=== PATIENT | male | born 1945 | race Hispanic/Latino ===

== ENCOUNTER 2018-06-28 11:27 | Emergency (ER) | payer OTHER ==
[2018-06-28 12:27] LABS: APPEARANCE,URINE Clear (CLEAR); BILIRUBIN,URINE Negative (NEGATIVE); COLOR,URINE Yellow (YELLOW); GLUCOSE, URINE (UA) Negative (NEGATIVE); KETONES,URINE Negative (NEGATIVE); LEUKOCYTE ESTERASE ,URINE Trace (NEGATIVE); NITRATE,URINE Negative (NEGATIVE); OCCULT BLOOD,URINE Negative (NEGATIVE); PROTEIN,URINE 300 (NEGATIVE)
[2018-06-28 12:38] LABS: BACTERIA,URINE None Seen /HPF (None Seen); RBC,URINE None Seen /HPF (0-1); SQUAMOUS EPITHELIAL CELL,UR 0-2 /HPF (0-2); WBC,URINE 0-1 /HPF (0-1)
== END 2018-06-28 14:13 | disposition home or self-care (01) ==
LOC: EDH 11:27
DX: R10.9 Unspecified abdominal pain (principal); E11.9 Type 2 diabetes mellitus without complications; I10 Essential (primary) hypertension; Z86.73 Personal history of transient ischemic attack (TIA), and cerebral infarction without residual deficits; Z90.49 Acquired absence of other specified parts of digestive tract
CPT/HCPCS: 74176; 81001

== ENCOUNTER → 2018-09-13 | Outpatient (CLI) | payer OTHER | END | disposition home or self-care (01) | LOC: RAH 12:54 | PROVIDERS: ATTEND Family Medicine | DX: I73.9 Peripheral vascular disease, unspecified (principal); I12.9 Hypertensive chronic kidney disease with stage 1 through stage 4 chronic kidney disease, or unspecified chronic kidney disease; N18.3 Chronic kidney disease, stage 3 (moderate); E78.5 Hyperlipidemia, unspecified; E11.22 Type 2 diabetes mellitus with diabetic chronic kidney disease; E11.65 Type 2 diabetes mellitus with hyperglycemia | CPT/HCPCS: 93922 ==

== ENCOUNTER 2019-02-20 01:22 | Inpatient (IN) | payer OTHER ==
[~2019-02-20] VITALS: Ht 177.8 cm; Wt 78.7 kg
[2019-02-20 02:18] LABS: EOSINOPHILS % (AUTO) 0.2 % (0.0-8.0); HEMATOCRIT 39.6 % (42-54); LYMPHOCYTES % (AUTO) 6.8 % (21.0-51.0); MEAN CORPUSCULAR HEMOGLOBIN 31.3 pg (27.0-33.0); MEAN CORPUSCULAR HGB CONC 34.7 g/dL (32.0-36.0); MEAN CORPUSCULAR VOLUME 90.2 fL (79-99); MONOCYTES % (AUTO) 5.8 % (3.0-13.0); NEUTROPHILS % (AUTO) 86.2 % (40.0-77.0); PLATELET COUNT (AUTO) 99 K/uL (130-400); RED BLOOD CELL COUNT(AUTO) 4.39 MIL/uL (4.50-6.20); RED CELL DISTRIBUTION WIDTH 15.3 % (11.0-15.5); WHITE BLOOD COUNT (AUTO) 5.8 K/uL (4.8-10.8)
[2019-02-20 02:25] LABS: APPEARANCE,URINE CLEAR (CLEAR); BILIRUBIN,URINE NEGATIVE (NEGATIVE); COLOR,URINE YELLOW (YELLOW); GLUCOSE, URINE (UA) NEGATIVE (NEGATIVE); KETONES,URINE NEGATIVE (NEGATIVE); LEUKOCYTE ESTERASE ,URINE TRACE (NEGATIVE); NITRATE,URINE NEGATIVE (NEGATIVE); OCCULT BLOOD,URINE TRACE-INTACT (NEGATIVE); PH,URINE 5.5 (5.0-8.0); PROTEIN,URINE 30 mg/dL (NEGATIVE); UROBILINOGEN,URINE 0.2 mg/dL (0.2-1.0)
[2019-02-20 02:29] LABS: INR 0.93 (0.85-1.15); PARTIAL THROMBOPLASTIN TIME 31.9 SEC (26.3-35.5); PROTHROMBIN TIME 9.8 SEC (9.6-11.6)
[2019-02-20] MEDS ORDERED: IBUPROFEN 400 MG TABLET ONE (02:30)
[2019-02-20 02:37] LABS: ALANINE AMINOTRANSFERASE 24 U/L (12-78); ALBUMIN 2.9 g/dL (3.5-5.0); ASPARTATE AMINOTRANSFERASE 12 U/L (10-37); BILIRUBIN,TOTAL 0.8 mg/dL (0.2-1.0); CARBON DIOXIDE 14 mmol/L (21-32); CHLORIDE 102 mmol/L (101-111); CREATINE KINASE, TOTAL 54 U/L (21-232); CREATININE 4.1 mg/dL (0.5-1.5); GLOMERULAR FILTR. RATE CALC 15 mL/min (>60); GLUCOSE,RANDOM 130 mg/dL (70-105); MYOGLOBIN 242 ng/mL (10-92); POTASSIUM 3.9 mmol/L (3.5-5.1); SODIUM SERUM 131 mmol/L (136-145); TOTAL PROTEIN, SERUM 5.8 g/dL (6.0-8.3); TROPONIN I < 0.04 ng/mL (0.00-0.06)
[2019-02-20 02:39] LABS: UREA NITROGEN, BLOOD 90 mg/dL (7-18)
[2019-02-20 02:40] LABS: PLATELET MORPHOLOGY COMMENT SLIGHTLY DECREASED
[2019-02-20] MEDS ORDERED: SODIUM CHLORIDE 0.9% 1000ML 1,000 ML IV ONE ×2 (02:46→06:38)
[2019-02-20 03:15] LABS: ABG OXYGEN SATURATION 88.7 % (95.0-99.0); BASE EXCESS,VENOUS BLOOD GAS -12.2 (-2.0-3.0); HCO3,VENOUS BLOOD GAS 11.6 (21.0-28.0); PCO2,VENOUS BLOOD GAS 23 (35-48); PH,VENOUS BLOOD GAS 7.321 (7.350-7.450)
[2019-02-20] MEDS ORDERED: ZOSYN 3.375GM+NS 50ML 50 ML IV ONE (04:39)
[2019-02-20] MEDS ORDERED: SODIUM CHLORIDE 0.9% 1000ML 1,000 ML IV SCH (05:45)
[2019-02-20] MEDS ORDERED: ZOSYN 3.375GM+NS 50ML 50 ML IV SCH (06:00)
[2019-02-20 07:32] VITALS: BP 101/46
--- NOTE | 2019-02-20 07:40 | NUR ---
ASSESSMENT ENCOUNTERED PT A&OX3, CALM COOPERATIVE AND DOES NOT APPEAR TO BE IN ANY DISTRESS NOR ANY NEURO DEFICITS PRESENT, PT DENIES PAIN, SOB, NAUSEA. PT IS NPO PENDING EVALUATION BY DR PATEL. CALL LIGHT WITHIN REACH, FAMILY AT BEDSIDE.
[2019-02-20] MEDS ORDERED: PRAV40TA3 PO (07:50)
[2019-02-20] MEDS ORDERED: NITR0.4T50 SL (07:50)
[2019-02-20] MEDS ORDERED: ISOS30TA6 PO (07:50)
[2019-02-20] MEDS ORDERED: GLIP5TAB11 PO (07:50)
[2019-02-20] MEDS ORDERED: CARV25TA PO (07:50)
[2019-02-20] MEDS ORDERED: CYAN10007 IJ (07:50)
[2019-02-20] MEDS ORDERED: FERR325T22 PO (07:50)
[2019-02-20] MEDS ORDERED: LISI40TA4 PO (07:50)
[2019-02-20] MEDS ORDERED: DOCU100C33 PO (07:50)
[2019-02-20] MEDS ORDERED: PANT40TA25 PO (07:50)
[2019-02-20] MEDS ORDERED: ASPI-1181 PO (07:50)
[2019-02-20] MEDS ORDERED: ERGO500014 PO (07:50)
[2019-02-20] MEDS ORDERED: PHARMACY COMMUNICATION MISC SCH (09:00)
[2019-02-20] MEDS: SODIUM BICARB 8.4% 50ML SYRING 150 MEQ in DEXTROSE 5%-WATER 1,000 ML IVP SCH ×2 (09:30→19:30)
[2019-02-20 11:00] VITALS: BP 125/55
[2019-02-20] MEDS ORDERED: KETOROLAC TROMETHAMINE 15MG/ML IV PRN (12:30)
[2019-02-20] MEDS ORDERED: ONDANSETRON HCL 4 MG/2 ML VIAL ONE (12:37)
[2019-02-20] MEDS ORDERED: KETOROLAC TROMETHAMINE 15MG/ML ONE (12:37)
--- NOTE | 2019-02-20 14:23 | NUR ---
SHEFALI PLAN VISITED WITH PATIENT. PATIENT IN PROCEDURE. MIGUELANGEL WILL CONTINUE TO FOLLOW. Addendum: 02/20/19 at 1424 by ABIGAIL FULLER RN CM Amended: Links added.
[2019-02-20 15:00] VITALS: BP 123/55
[2019-02-20] MEDS: PANTOPRAZOLE 40 MG/VIAL IVP SCH (18:16)
--- NOTE | 2019-02-20 18:30 | NUR ---
TRANSFER TO 401 REPORT GIVEN TO NOE ANSARI,
[2019-02-20 19:21] VITALS: BP 131/50
[2019-02-20] MEDS: ZOSYN 3.375GM+NS 50ML 50 ML IV SCH (19:30)
[2019-02-20 23:51] VITALS: BP 145/64
[2019-02-21 03:58] VITALS: BP 146/64
[2019-02-21] MEDS: SODIUM BICARB 8.4% 50ML SYRING 150 MEQ in DEXTROSE 5%-WATER 1,000 ML IVP SCH ×2 (04:27→12:33)
[2019-02-21 04:40] LABS: HEMATOCRIT 36.4 % (42-54); MEAN CORPUSCULAR HEMOGLOBIN 31.4 pg (27.0-33.0); MEAN CORPUSCULAR HGB CONC 35.4 g/dL (32.0-36.0); MEAN CORPUSCULAR VOLUME 88.6 fL (79-99); NUCLEATED RED BLOOD CELLS 0.1 % (0.0-0.19); PLATELET COUNT (AUTO) 80 K/uL (130-400); RED BLOOD CELL COUNT(AUTO) 4.11 MIL/uL (4.50-6.20); RED CELL DISTRIBUTION WIDTH 15.4 % (11.0-15.5); WHITE BLOOD COUNT (AUTO) 7.8 K/uL (4.8-10.8)
[2019-02-21 04:48] LABS: ALBUMIN 2.1 g/dL (3.5-5.0); BILIRUBIN,TOTAL 0.9 mg/dL (0.2-1.0); CREATININE 3.4 mg/dL (0.5-1.5); PHOSPHORUS 3.2 mg/dL (2.5-4.9); TOTAL PROTEIN, SERUM 5.2 g/dL (6.0-8.3)
[2019-02-21 04:49] LABS: POTASSIUM 2.9 mmol/L (3.5-5.1)
[2019-02-21 05:07] LABS: BAND NEUTROPHILS % (MANUAL) 12 % (0-2); EOSINOPHILS % (MANUAL) 1 % (1-6); LYMPHOCYTES % (MANUAL) 8 % (22-44); MAN.DIFF COMMENT-IMPRESSION MANUAL DIFFERENTIAL; MONOCYTES % (MANUAL) 7 % (2-9); SEGMENTED NEUTROPHILS % 72 % (40-70)
--- NOTE | 2019-02-21 06:00 | NUR ---
MD CALL DR CARLTON CHRISTOPHER TO INFORM HIM OF PATIENT'S POTASSIUM OF 2.9 MMOL/L. NO CALL BACK OF YET.
--- NOTE | 2019-02-21 06:43 | NUR ---
NO CALL DR VINCENT HAS NOT RETURN PAGED AT THIS TIME.
--- NOTE | 2019-02-21 06:50 | NUR ---
MD CALL DR VINCENT CALLED BACK AND WAS INFORMED OF PATIENT POTASSIUM LEVEL. ORDERS FOR HALF POTASSIUM PROTOCOL GIVEN.
[2019-02-21 07:58] VITALS: BP 159/77
--- NOTE | 2019-02-21 10:03 | NUR ---
DR. MUNGUIA PATIENT COMPLAINS OF "BAD" HEADACHE. USED PAIN SCALE TO ASSESS SEVERITY OF HEADACHE AND PATIENT RESPONDED "I DON'T KNOW. ALL I KNOW IS MY HEADACHE IS BAD." CALLED DRHawa CALLED DR. MUNGUIA TO REPORT PATIENT COMPLAINT, PATIENT DOES NOT HAVE PRN ORDER FOR ANY PAIN MEDICATION. NO ANSWER AT THIS TIME AND I AM UNABLE TO LEAVE VOICEMAIL. WILL REATTEMPT TO CALL
[2019-02-21] MEDS: ZOSYN 3.375GM+NS 50ML 50 ML IV SCH ×2 (11:19→19:16)
[2019-02-21] MEDS: PANTOPRAZOLE 40 MG/VIAL IVP SCH (11:20)
[2019-02-21 11:39] VITALS: BP 145/66
[2019-02-21] MEDS ORDERED: MEPERIDINE-PF 25 MG/ML SYG IVP PRN ×2 (12:15)
[2019-02-21] MEDS ORDERED: ONDANSETRON HCL 4 MG/2 ML VIAL IVP PRN (12:15)
--- NOTE | 2019-02-21 12:30 | NUR ---
INITIAL- DC OPTIONS MET W PT, PT SISTER, AND SPOUSE MARTHA, WHO WILL PROVIDE TRANSPORT IF PT IS DISCHARGED TO HOME. PT CURRENTLY W NGT, MAY NEED SURGERY, RECENT DECLINE IN STATUS, HAS CANE , USES 50% OF THE TIME ONE STEP AT OUTSIDE OF HOME, SPOUSE STATES HAS FALLEN THERE MORE THAN ONCE PLAN OF CAR STILL UNDECIDED, MAY NEED ABDOMINAL SURGERY, FAMILY- SPOUSE AND SISTER STATES PT WILL NEED REHAB/SNF AFTER THE SURGERY 2/2 TO HIS RECENT SIGNIFICANT DECLINE IN STATUS. DISCUSSED [facility] BEN[facility] VS [facility] BENEFITS . CM WILL FOLLOW UP Yudelka RAMEZ AT [place] TOMORROW TO SEE IF PT IS SERVICE CONNECTED AND PRESENT THAT OPTION Addendum: 02/22/19 at 0754 by SALVADOR BANGURA RN CM Amended: Links added.
[2019-02-21] MEDS: IPRATROPIUM/ALBUTEROL SULFATE 3 ML SOLUTION IH SCH ×4 (13:21→22:00)
[2019-02-21] MEDS: POTASSIUM CHLORIDE 10MEQ/100ML 100 ML IV PRN ×2 (13:32→17:29)
[2019-02-21] MEDS ORDERED: CLINIMIX E 5%-15% 2,000 ML IV ONE (14:00)
--- NOTE | 2019-02-21 15:42 | NUR ---
RD Notification - TPN RECS Pt admitted for Acute on Chronic Renal Failure, Acute Diverticulitis. TOBIN TPN Recommendations: Clinimix E 10/05 @65mls/hr, 20% Intralipid MWF. RD to continue to monitor potassium levels. Pt with PICC Line in place. NGT for intermittent suction as per EMR. Pt LBM 02/16/19. Pt monitored labs: K 2.9, BUN 73, Cr 3.4, GFR 19, Glu 221, ca 7.6, AST 9, Alb 2.1. RD to continue to monitor. Please notify RD as additional nutrition concerns arise. Thank you. Addendum: 02/21/19 at [address] RD Amended: Links added.
[2019-02-21 16:46] VITALS: BP_SYST 117; BP_SYST 118; BP_DIAS 55; BP_DIAS 68
[2019-02-21] MEDS ORDERED: GLUCAGON 1MG KIT 1 MG ML IM PRN (18:30)
[2019-02-21] MEDS ORDERED: PHARMACY COMMUNICATION MISC SCH (18:30)
[2019-02-21] MEDS ORDERED: INSULIN HUMULIN R 100 UNIT/ML 3ML ONE (18:47)
[2019-02-21] MEDS ORDERED: COMPOUND IV REFRIGERATED 1 EACH IVSOLN MISC PRN (19:00)
[2019-02-21] MEDS: SODIUM BICARB 8.4% IV SCH (19:16)
[2019-02-21] MEDS: SYRING IV SCH (19:16)
[2019-02-21] MEDS: SODIUM CHLORIDE 0.9% IV SCH (19:16)
[2019-02-21 19:27] VITALS: BP 147/68
[2019-02-21] MEDS ORDERED: INSULIN HUMULIN R 100 UNIT/ML 3ML SQ SCH (21:00)
[2019-02-21 23:45] VITALS: BP 162/72
[2019-02-22] MEDS: INSULIN HUMULIN R 100 UNIT/ML 3ML SQ SCH ×4 (00:13→17:26)
[2019-02-22] MEDS: IPRATROPIUM/ALBUTEROL SULFATE 3 ML SOLUTION IH SCH ×6 (02:14→21:21)
[2019-02-22 03:00] VITALS: BP 168/72
[2019-02-22 05:54] LABS: HEMATOCRIT 35.2 % (42-54); MEAN CORPUSCULAR HEMOGLOBIN 31.1 pg (27.0-33.0); MEAN CORPUSCULAR VOLUME 88.7 fL (79-99); PLATELET COUNT (AUTO) 86 K/uL (130-400); RED BLOOD CELL COUNT(AUTO) 3.97 MIL/uL (4.50-6.20); RED CELL DISTRIBUTION WIDTH 15.4 % (11.0-15.5); WHITE BLOOD COUNT (AUTO) 5.7 K/uL (4.8-10.8)
[2019-02-22 06:04] LABS: BAND NEUTROPHILS % (MANUAL) 20 % (0-2); LYMPHOCYTES % (MANUAL) 9 % (22-44); MAN.DIFF COMMENT-IMPRESSION MANUAL DIFFERENTIAL; METAMYELOCYTES % 2 % (0-0); MONOCYTES % (MANUAL) 7 % (2-9); SEGMENTED NEUTROPHILS % 62 % (40-70)
[2019-02-22 06:30] LABS: ALBUMIN 2.1 g/dL (3.5-5.0); BILIRUBIN,TOTAL 0.9 mg/dL (0.2-1.0); CREATININE 2.8 mg/dL (0.5-1.5); PHOSPHORUS 3.2 mg/dL (2.5-4.9); TOTAL PROTEIN, SERUM 5.5 g/dL (6.0-8.3)
--- NOTE | 2019-02-22 07:55 | NUR ---
REPORT GIVEN TO FROYLAN ANSARI ROOM 311
[2019-02-22 08:00] VITALS: BP 179/71
[2019-02-22] MEDS: PANTOPRAZOLE 40 MG/VIAL IVP SCH (09:00)
[2019-02-22] MEDS: ZOSYN 3.375GM+NS 50ML 50 ML IV SCH ×2 (09:55→20:52)
[2019-02-22] MEDS: POTASSIUM CHLORIDE 10MEQ/100ML 100 ML IV PRN ×2 (09:55→17:54)
[2019-02-22] MEDS: FAT EMULSIONS 20% 250ML 250 ML IV SCH (10:00)
[2019-02-22 11:00] VITALS: BP 162/84
[2019-02-22 16:00] VITALS: BP 191/72
--- NOTE | 2019-02-22 16:23 | NUR ---
RD UPDATE Clinimix E 10/05 @65mls initiated 02/21/19. Pt with improving renal labs (BUN 62, Cr 2.8, GFR 24). Serum potassium 3.0. Noted elevated BG; sliding scale insulin in place as per EMR. Recommend Magnesium lab draw. RD to continue to monitor. Please notify RD as additional nutrition concerns arise. Thank you.
[2019-02-22] MEDS: NITROGLYCERIN 1GM/1 INCH PACKET TD SCH (17:30)
[2019-02-22] MEDS ORDERED: NITROGLYCERIN 1GM/1 INCH PACKET TD ONE (17:37)
[2019-02-22] MEDS: LIDOCAINE HCL-MPF 1% 2ML VIAL IV PRN (17:54)
[2019-02-22] MEDS ORDERED: M.V.I. IV [ADULT] 10 ML in CLINIMIX E 5%-15% 2,000 ML IV SCH (18:00)
[2019-02-22 20:00] VITALS: BP 165/71
[2019-02-23] VITALS: BP 149/82
[2019-02-23] MEDS: INSULIN HUMULIN R 100 UNIT/ML 3ML SQ SCH ×4 (01:01→17:28)
[2019-02-23] MEDS: IPRATROPIUM/ALBUTEROL SULFATE 3 ML SOLUTION IH SCH ×7 (01:05→23:59)
[2019-02-23] MEDS: NITROGLYCERIN 1GM/1 INCH PACKET TD SCH ×4 (01:30→21:57)
[2019-02-23 04:00] VITALS: BP 188/71
[2019-02-23 06:17] LABS: ALBUMIN 2.1 g/dL (3.5-5.0); BILIRUBIN,TOTAL 0.7 mg/dL (0.2-1.0); CREATININE 2.2 mg/dL (0.5-1.5); MAGNESIUM 2.6 mg/dL (1.80-2.40); PHOSPHORUS 3.1 mg/dL (2.5-4.9); POTASSIUM 3.3 mmol/L (3.5-5.1); TOTAL PROTEIN, SERUM 5.5 g/dL (6.0-8.3)
[2019-02-23 07:15] VITALS: BP 152/77
[2019-02-23] MEDS ORDERED: DIATR MEGLU/DIATRIZOATE SODIUM 30 ML BOTTLE ONE (07:19)
[2019-02-23] MEDS: SODIUM BICARB 8.4% IV SCH (07:30)
[2019-02-23] MEDS: SODIUM CHLORIDE 0.9% IV SCH (07:30)
[2019-02-23] MEDS: SYRING IV SCH (07:30)
[2019-02-23] MEDS: ZOSYN 3.375GM+NS 50ML 50 ML IV SCH ×2 (08:57→20:13)
[2019-02-23 12:00] VITALS: BP 114/66
[2019-02-23] MEDS: PANTOPRAZOLE 40 MG/VIAL IVP SCH (13:13)
[2019-02-23 16:00] VITALS: BP 163/69
--- NOTE | 2019-02-23 16:16 | NUR ---
DR PATEL EXPLAINED TO PATIENT ON CT SCAN RESULTS AND FREDAT REQUESTED COPY OF REPORT . PER MD TO GO AHEAD AND GIVE PAITENT COPY . VERIFIED WITH CM ON PROCESS ,IF MD OK AND EXPLAINED TO PATIENT MAY GIVE PATIENT A COPY OF RESULT .
--- NOTE | 2019-02-23 16:25 | NUR ---
RD FOLLOW UP NOTE Pt continues on Clinimix 10/05 @ 65mls/hr; pending CT results and GI recommendations. Bicarb drip discontinued, as per EMR. Renal lab values continue to improve. NGT remains for suction. Pt LBM 02/20/19. Pt monitoed labs: Na 148, K 3.3, CO2 34, BUN 52, Cr 2.2, GFR 31, Glu 181, Mg 2.60, AST 5, Alb 2.1. RD to continue to monitor. Please notify RD as nutrition concerns arise. Thank you. Addendum: 02/23/19 at [address] RD Amended: Links added.
[2019-02-23] MEDS ORDERED: M.V.I. IV [ADULT] 10 ML in CLINIMIX E 5%-15% 2,000 ML IV SCH (18:00)
[2019-02-23 20:00] VITALS: BP 187/76
--- NOTE | 2019-02-23 20:00 | NUR ---
activity ambulatory in the hallway, steady gait, tolerated well, back to room, right ngt to lis, ivf infusing well to wiley picc line, teach patient plan of care and expected outcome
[2019-02-24] VITALS (9 sets, daily range): BP systolic 171–217; BP diastolic 72–88
[2019-02-24] MEDS: LABETALOL 20 MG/4 ML DISP.SYRIN IV PRN ×3 (00:43→16:40)
--- NOTE | 2019-02-24 00:43 | NUR ---
B/P B/P 171/86, HEART RATE APICAL 66, ASYMPTOMAtic, labetolotl 5 mg ivp given
[2019-02-24] MEDS: INSULIN HUMULIN R 100 UNIT/ML 3ML SQ SCH ×5 (00:50→18:55)
--- NOTE | 2019-02-24 01:40 | NUR ---
med effect b/p 138/75, no sob, no c/o pain
[2019-02-24 04:50] LABS: BASOPHILS % (AUTO) 0.3 % (0.0-5.0); EOSINOPHILS % (AUTO) 2.6 % (0.0-8.0); HEMATOCRIT 35.1 % (42-54); LYMPHOCYTES % (AUTO) 17.8 % (21.0-51.0); MEAN CORPUSCULAR HEMOGLOBIN 30.8 pg (27.0-33.0); MEAN CORPUSCULAR HGB CONC 34.4 g/dL (32.0-36.0); MEAN CORPUSCULAR VOLUME 89.6 fL (79-99); MONOCYTES % (AUTO) 10.4 % (3.0-13.0); NEUTROPHILS % (AUTO) 68.9 % (40.0-77.0); PLATELET COUNT (AUTO) 133 K/uL (130-400); RED BLOOD CELL COUNT(AUTO) 3.91 MIL/uL (4.50-6.20)
[2019-02-24 05:19] LABS: ALBUMIN 2.2 g/dL (3.5-5.0); BILIRUBIN,TOTAL 1.1 mg/dL (0.2-1.0); CREATININE 2.1 mg/dL (0.5-1.5); POTASSIUM 3.3 mmol/L (3.5-5.1); TOTAL PROTEIN, SERUM 5.6 g/dL (6.0-8.3)
[2019-02-24] MEDS: IPRATROPIUM/ALBUTEROL SULFATE 3 ML SOLUTION IH SCH ×3 (06:42→23:20)
[2019-02-24] MEDS: NITROGLYCERIN 1GM/1 INCH PACKET TD SCH ×3 (07:45→23:45)
[2019-02-24] MEDS ORDERED: CLONIDINE 0.3 MG/ 24 HR PATCH TD SCH (09:00)
[2019-02-24] MEDS: PANTOPRAZOLE 40 MG/VIAL IVP SCH (09:38)
[2019-02-24] MEDS: ZOSYN 3.375GM+NS 50ML 50 ML IV SCH ×2 (09:38→21:41)
[2019-02-24] MEDS: FAT EMULSIONS 20% 250ML 250 ML IV SCH (09:39)
[2019-02-24] MEDS: OCTREOTIDE ACETATE 100 MCG/ML AMP SQ SCH ×2 (14:55→21:42)
[2019-02-24] MEDS ORDERED: LABETALOL 20 MG/4 ML DISP.SYRIN IV PRN (16:30)
[2019-02-24] MEDS ORDERED: MAGNESIUM 2GM PREMIX 50ML 50 ML IV PRN (20:30)
[2019-02-24] MEDS ORDERED: M.V.I. IV [ADULT] 10 ML in CLINIMIX E 5%-15% 2,000 ML IV SCH (20:30)
[2019-02-25 00:18] VITALS: BP 193/86
[2019-02-25] MEDS: POTASSIUM CHLORIDE 10MEQ/100ML 100 ML IV PRN (00:30)
[2019-02-25] MEDS: LIDOCAINE HCL-MPF 1% 2ML VIAL IV PRN (00:30)
[2019-02-25] MEDS: INSULIN HUMULIN R 100 UNIT/ML 3ML SQ SCH ×4 (00:32→18:34)
[2019-02-25] MEDS: LABETALOL 20 MG/4 ML DISP.SYRIN IV PRN (00:40)
[2019-02-25 04:31] VITALS: BP 163/119
[2019-02-25 04:53] LABS: BASOPHILS % (AUTO) 0.5 % (0.0-5.0); EOSINOPHILS % (AUTO) 3.4 % (0.0-8.0); HEMATOCRIT 36.5 % (42-54); MEAN CORPUSCULAR HEMOGLOBIN 30.9 pg (27.0-33.0); MEAN CORPUSCULAR VOLUME 90.9 fL (79-99); MONOCYTES % (AUTO) 12.5 % (3.0-13.0); NEUTROPHILS % (AUTO) 71.6 % (40.0-77.0); NUCLEATED RED BLOOD CELLS 0.1 % (0.0-0.19); PLATELET COUNT (AUTO) 129 K/uL (130-400); RED BLOOD CELL COUNT(AUTO) 4.02 MIL/uL (4.50-6.20); RED CELL DISTRIBUTION WIDTH 14.9 % (11.0-15.5); WHITE BLOOD COUNT (AUTO) 5.9 K/uL (4.8-10.8)
[2019-02-25 05:25] LABS: CREATININE 2.5 mg/dL (0.5-1.5); MAGNESIUM 2.2 mg/dL (1.80-2.40); POTASSIUM 3.9 mmol/L (3.5-5.1)
[2019-02-25] MEDS: IPRATROPIUM/ALBUTEROL SULFATE 3 ML SOLUTION IH SCH ×4 (06:00→23:21)
[2019-02-25] MEDS: NITROGLYCERIN 1GM/1 INCH PACKET TD SCH ×3 (07:45→23:45)
[2019-02-25 08:00] VITALS: BP 213/78
[2019-02-25] MEDS: ZOSYN 3.375GM+NS 50ML 50 ML IV SCH ×2 (10:04→22:12)
[2019-02-25] MEDS: PANTOPRAZOLE 40 MG/VIAL IVP SCH (10:06)
[2019-02-25] MEDS: OCTREOTIDE ACETATE 100 MCG/ML AMP SQ SCH ×3 (10:07→22:12)
[2019-02-25] MEDS ORDERED: CLONIDINE 0.3 MG/ 24 HR PATCH TD SCH (11:15)
[2019-02-25 12:00] VITALS: BP 168/84
--- NOTE | 2019-02-25 12:30 | NUR ---
Notified patient continues with elevated BP and Clonidine 0.6mg patch started today. No new orders.
--- NOTE | 2019-02-25 14:15 | NUR ---
Dr. Iain mac. Orders for Pharmacy to reconstitute TPN without Premix without Sodium due to elevated NA
[2019-02-25 16:19] VITALS: BP 183/77
--- NOTE | 2019-02-25 17:15 | NUR ---
Patient requesting to be taken off NG suction and all IV's. Disconnected patient from requested.
--- NOTE | 2019-02-25 18:15 | NUR ---
Notified Dr. Fernandes patient requesting to be off NG tube and TPN for a while. NOtified Dr. Fernandes and Pharmacy notified of Dr. Timmons recommendations. Addendum: 02/25/19 at 1909 by MANASA PEDROZA RN RN Spoke with Nishant Pereyra regarding recommendations.
[2019-02-25] MEDS ORDERED: [UNRECOGNIZED DRUG - OTHER] IV SCH ×6 (19:45)
[2019-02-25] MEDS ORDERED: POTASSIUM CHLORIDE IV SCH ×6 (19:45)
[2019-02-25] MEDS ORDERED: POTASSIUM PHOS M BASIC D BASIC IV SCH ×6 (19:45)
[2019-02-25 20:00] VITALS: BP 187/92
[2019-02-25 22:11] LABS: APPEARANCE,URINE Cloudy (CLEAR); BILIRUBIN,URINE Small (NEGATIVE); COLOR,URINE Dark Yellow (YELLOW); GLUCOSE, URINE (UA) 500 mg/dL (NEGATIVE); KETONES,URINE Negative (NEGATIVE); LEUKOCYTE ESTERASE ,URINE Trace (NEGATIVE); NITRATE,URINE Negative (NEGATIVE); OCCULT BLOOD,URINE Small (NEGATIVE); PROTEIN,URINE >=1000 mg/dL (NEGATIVE); UROBILINOGEN,URINE 0.2 mg/dL (0.2-1.0)
[2019-02-25 22:16] LABS: SODIUM,URINE RANDOM 27 mmol/l (40-220)
[2019-02-25 22:31] LABS: BACTERIA,URINE Few /HPF (None Seen); SQUAMOUS EPITHELIAL CELL,UR 0-2 /HPF (0-2)
[2019-02-26] VITALS: BP 187/89
[2019-02-26] MEDS: INSULIN HUMULIN R 100 UNIT/ML 3ML SQ SCH ×5 (01:13→18:00)
[2019-02-26] MEDS: LABETALOL 20 MG/4 ML DISP.SYRIN IV PRN (01:14)
[2019-02-26 04:00] VITALS: BP 185/84
[2019-02-26 05:57] LABS: HEMATOCRIT 35.8 % (42-54); MEAN CORPUSCULAR HGB CONC 34.1 g/dL (32.0-36.0); MEAN CORPUSCULAR VOLUME 90.8 fL (79-99); PLATELET COUNT (AUTO) 129 K/uL (130-400); RED BLOOD CELL COUNT(AUTO) 3.95 MIL/uL (4.50-6.20); RED CELL DISTRIBUTION WIDTH 14.6 % (11.0-15.5); WHITE BLOOD COUNT (AUTO) 5.6 K/uL (4.8-10.8)
[2019-02-26 06:09] LABS: MAGNESIUM 2.2 mg/dL (1.80-2.40); PHOSPHORUS 4.8 mg/dL (2.5-4.9)
[2019-02-26] MEDS: KETOROLAC TROMETHAMINE 15MG/ML IV PRN ×2 (06:17→21:23)
[2019-02-26] MEDS: IPRATROPIUM/ALBUTEROL SULFATE 3 ML SOLUTION IH SCH ×4 (06:33→23:11)
[2019-02-26] MEDS: NITROGLYCERIN 1GM/1 INCH PACKET TD SCH ×2 (07:45→23:40)
[2019-02-26 08:00] VITALS: BP 191/91
[2019-02-26] MEDS ORDERED: LABETALOL HCL 5 MG/ML 20ML VIAL IV ONE (09:31)
[2019-02-26] MEDS: ZOSYN 3.375GM+NS 50ML 50 ML IV SCH ×2 (09:32→21:23)
[2019-02-26] MEDS: OCTREOTIDE ACETATE 100 MCG/ML AMP SQ SCH ×3 (09:32→21:24)
[2019-02-26] MEDS: PANTOPRAZOLE 40 MG/VIAL IVP SCH (09:32)
--- NOTE | 2019-02-26 11:02 | NUR ---
DR. BRICE NOTIFIED Dr. Briec notified at this time about pt constant elevated BP with systolic above 190's, MD made aware of results of medical interventions carried out with no improvements, pt on clonidine 0.6mg patch Q3D and labetalol 5mg IV Q6H for systolic over 150 respectively, pt refusing nitro paste at this time, MD notified about pt's refusal, MD stated to continue monitoring pt. Nursing will continue to monitor.
[2019-02-26 12:00] VITALS: BP 199/89
[2019-02-26 13:49] LABS: ALBUMIN 2.5 g/dL (3.5-5.0); BILIRUBIN,TOTAL 2.1 mg/dL (0.2-1.0); TOTAL PROTEIN, SERUM 6.1 g/dL (6.0-8.3)
[2019-02-26 16:00] VITALS: BP 181/99
[2019-02-26 20:00] VITALS: BP 200/82
[2019-02-26] MEDS ORDERED: [UNRECOGNIZED DRUG - OTHER] IV SCH ×6 (20:45)
[2019-02-26] MEDS ORDERED: POTASSIUM PHOS M BASIC D BASIC IV SCH ×6 (20:45)
[2019-02-26] MEDS ORDERED: POTASSIUM CHLORIDE IV SCH ×6 (20:45)
[2019-02-26] MEDS: LABETALOL HCL 5 MG/ML 20ML VIAL IV PRN (21:39)
[2019-02-27] VITALS (7 sets, daily range): BP systolic 148–198; BP diastolic 78–98
[2019-02-27] MEDS: INSULIN HUMULIN R 100 UNIT/ML 3ML SQ SCH ×4 (00:45→18:14)
[2019-02-27] MEDS: IPRATROPIUM/ALBUTEROL SULFATE 3 ML SOLUTION IH SCH ×4 (06:19→23:03)
[2019-02-27 06:22] LABS: HEMATOCRIT 37.5 % (42-54); MEAN CORPUSCULAR HEMOGLOBIN 30.6 pg (27.0-33.0); MEAN CORPUSCULAR HGB CONC 33.4 g/dL (32.0-36.0); MEAN CORPUSCULAR VOLUME 91.5 fL (79-99); NUCLEATED RED BLOOD CELLS 0.1 % (0.0-0.19); PLATELET COUNT (AUTO) 141 K/uL (130-400); WHITE BLOOD COUNT (AUTO) 5.4 K/uL (4.8-10.8)
[2019-02-27 06:43] LABS: CREATININE 2.8 mg/dL (0.5-1.5); MAGNESIUM 2.4 mg/dL (1.80-2.40); PHOSPHORUS 4.3 mg/dL (2.5-4.9)
[2019-02-27 07:16] LABS: POTASSIUM 4.2 mmol/L (3.5-5.1)
[2019-02-27] MEDS ORDERED: DIATR MEGLU/DIATRIZOATE SODIUM 30 ML BOTTLE ONE (07:20)
[2019-02-27] MEDS: NITROGLYCERIN 1GM/1 INCH PACKET TD SCH ×3 (07:45→23:45)
[2019-02-27] MEDS: PANTOPRAZOLE 40 MG/VIAL IVP SCH (08:35)
[2019-02-27] MEDS: OCTREOTIDE ACETATE 100 MCG/ML AMP SQ SCH ×3 (08:36→20:42)
[2019-02-27] MEDS: ZOSYN 3.375GM+NS 50ML 50 ML IV SCH ×2 (08:43→20:41)
[2019-02-27] MEDS ORDERED: CLONIDINE 0.3 MG/ 24 HR PATCH TD SCH (09:00)
[2019-02-27] MEDS: FAT EMULSIONS 20% 250ML 250 ML IV SCH (13:38)
[2019-02-27] MEDS ORDERED: SODIUM CHLORIDE 0.9% 500ML 500 ML IV SCH (14:15)
--- NOTE | 2019-02-27 14:42 | NUR ---
PT UPDATE NG tube d/c at this time, no complication noted, pt to resume clear liquid, ice chips to start with.
--- NOTE | 2019-02-27 15:51 | NUR ---
RD FOLLOW UP Pt remains on TPN x 6 days, Pending CT of abdomen. Recommend to advance diet as tolerated. Pt LBM 02/25/19. Pt monitored labs: Na 149, Cl 112, BUN 57. Cr 2.8, GFR 24, T. Bili 2.1, AST 112, ALT 272, Alb 2.5. RD to continue monitor. Please notify as nutritional concerns arise. Thank you. Addendum: 02/27/19 at [address] RD Amended: Links added.
[2019-02-27] MEDS ORDERED: INSULIN HUMULIN R 100 UNIT/ML 3ML SQ SCH (21:00)
[2019-02-28] VITALS (7 sets, daily range): BP systolic 137–192; BP diastolic 77–87
[2019-02-28] MEDS: INSULIN HUMULIN R 100 UNIT/ML 3ML SQ SCH ×4 (05:45→22:54)
[2019-02-28] MEDS: IPRATROPIUM/ALBUTEROL SULFATE 3 ML SOLUTION IH SCH ×4 (06:28→23:45)
[2019-02-28] MEDS: NITROGLYCERIN 1GM/1 INCH PACKET TD SCH ×3 (07:45→23:45)
[2019-02-28] MEDS: ZOSYN 3.375GM+NS 50ML 50 ML IV SCH ×2 (09:13→20:24)
[2019-02-28] MEDS: OCTREOTIDE ACETATE 100 MCG/ML AMP SQ SCH ×3 (09:14→22:51)
[2019-02-28] MEDS: PANTOPRAZOLE 40 MG/VIAL IVP SCH (09:14)
[2019-02-28] MEDS: LABETALOL HCL 5 MG/ML 20ML VIAL IV PRN ×2 (09:51→20:24)
[2019-03-01] VITALS: BP 159/80
[2019-03-01] MEDS: DEXTROSE 50%-WATER 50 ML DISP.SYRIN IV PRN ×2 (00:46→04:44)
[2019-03-01 04:00] VITALS: BP 184/76
[2019-03-01] MEDS: LABETALOL HCL 5 MG/ML 20ML VIAL IV PRN (04:45)
[2019-03-01 04:52] VITALS: BP 127/68
[2019-03-01] MEDS: IPRATROPIUM/ALBUTEROL SULFATE 3 ML SOLUTION IH SCH ×2 (05:03→11:33)
[2019-03-01] MEDS: INSULIN HUMULIN R 100 UNIT/ML 3ML SQ SCH ×3 (05:07→16:30)
[2019-03-01 05:16] LABS: HEMATOCRIT 36.6 % (42-54); MEAN CORPUSCULAR HEMOGLOBIN 30.9 pg (27.0-33.0); MEAN CORPUSCULAR HGB CONC 33.8 g/dL (32.0-36.0); MEAN CORPUSCULAR VOLUME 91.3 fL (79-99); PLATELET COUNT (AUTO) 163 K/uL (130-400); RED BLOOD CELL COUNT(AUTO) 4.01 MIL/uL (4.50-6.20); RED CELL DISTRIBUTION WIDTH 14.8 % (11.0-15.5); WHITE BLOOD COUNT (AUTO) 7.9 K/uL (4.8-10.8)
[2019-03-01 05:35] LABS: ALBUMIN 2.2 g/dL (3.5-5.0); POTASSIUM 3.8 mmol/L (3.5-5.1); TOTAL PROTEIN, SERUM 5.5 g/dL (6.0-8.3)
[2019-03-01 07:30] VITALS: BP 186/93
[2019-03-01] MEDS: NITROGLYCERIN 1GM/1 INCH PACKET TD SCH ×2 (07:45→14:49)
[2019-03-01] MEDS ORDERED: PANTOPRAZOLE SODIUM 40 MG TABLET.DR PO SCH (08:50)
[2019-03-01] MEDS ORDERED: FERROUS SULFATE 325 MG TABLET.DR PO SCH (08:51)
[2019-03-01] MEDS ORDERED: ISOSORBIDE MONO 30MG TAB SR PO SCH (09:00)
[2019-03-01] MEDS ORDERED: ASPIRIN 81 MG EC TAB PO SCH (09:00)
[2019-03-01] MEDS ORDERED: LISINOPRIL 40 MG TABLET PO SCH (09:00)
[2019-03-01] MEDS ORDERED: DOCUSATE SODIUM 100 MG CAP PO SCH (09:00)
[2019-03-01] MEDS: OCTREOTIDE ACETATE 100 MCG/ML AMP SQ SCH ×2 (09:00→14:00)
[2019-03-01] MEDS ORDERED: CARVEDILOL 25 MG TABLET PO SCH (09:00)
[2019-03-01] MEDS: FAT EMULSIONS 20% 250ML 250 ML IV SCH (10:00)
[2019-03-01] MEDS: ZOSYN 3.375GM+NS 50ML 50 ML IV SCH (10:27)
[2019-03-01] MEDS: GLIPIZIDE 5 MG TABLET PO SCH ×2 (10:27→17:10)
[2019-03-01 11:00] VITALS: BP 131/73
[2019-03-01 16:00] VITALS: BP 123/71
--- NOTE | 2019-03-01 17:54 | NUR ---
PICC LINE D/C SAFELY, NO COMPLICATION NOTED, CATHETER TIP INTACT, PT SCHEDULED TO SEE DR. DO ON 03/07/[address] MUNGUIA ON 03/03/19 @ 9:45 AM, PT GIVEN D/C INSTRUCTION, PT VERBALIZED UNDERSTANDING OF D/C INSTRUCTION, PT TAKEN DOWN IN W/C BY STATE APPELLATE CLERK.
[2019-03-01] MEDS ORDERED: SIMVASTATIN 20 MG TABLET PO SCH (21:00)
== END 2019-03-01 17:20 | disposition home or self-care (01) | DRG 682 ==
LOC: EDH 01:22 → EDHIP 05:08 → 2AH 07:12 → 4AH 18:41 → 3BH 02-22 08:45 → 4DH 02-28 12:33
PROVIDERS: ADMIT Family Medicine; ATTEND Family Medicine
PROC: 02HV33Z Insertion of Infusion Device into Superior Vena Cava, Percutaneous Approach (ICD-10-PCS; principal; 2019-02-20)
PROC: 0D9670Z Drainage of Stomach with Drainage Device, Via Natural or Artificial Opening (ICD-10-PCS; 2019-02-20)
DX: N17.0 Acute kidney failure with tubular necrosis (principal); E43 Unspecified severe protein-calorie malnutrition; K26.5 Chronic or unspecified duodenal ulcer with perforation; K57.00 Diverticulitis of small intestine with perforation and abscess without bleeding; K56.600 Partial intestinal obstruction, unspecified as to cause; E87.2 Acidosis; R64 Cachexia; E87.0 Hyperosmolality and hypernatremia; N18.3 Chronic kidney disease, stage 3 (moderate); E86.9 Volume depletion, unspecified; D64.9 Anemia, unspecified; E11.22 Type 2 diabetes mellitus with diabetic chronic kidney disease; E78.5 Hyperlipidemia, unspecified; I12.9 Hypertensive chronic kidney disease with stage 1 through stage 4 chronic kidney disease, or unspecified chronic kidney disease; Z68.24 Body mass index [BMI] 24.0-24.9, adult; Z88.8 Allergy status to other drugs, medicaments and biological substances; Z83.3 Family history of diabetes mellitus; Z82.49 Family history of ischemic heart disease and other diseases of the circulatory system
CPT/HCPCS: 36415; 36600; 71045; 74176; 76770; 80048; 80053; 80061; 81001; 81003; 82010; 82550; 82803; 82947; 82948; 83605; 83735; 83874; 83935; 84100; 84145; 84300; 84484; 85025; 85027; 85610; 85730; 87040; 87046; 87088; 93005; 94640; 94664; 97039; 99291; C1894; C9113; G0378; J0610; J1815; J1885; J2175; J2354; J2405; J2543; J3475; J3480; J3490; J7030; J7070; Q9963